=== PATIENT | female | born 1935 | race Two or more races ===

== ENCOUNTER 2016-11-29 14:55 | Inpatient (IN) | payer MEDICARE, OTHER ==
[~2016-11-29] VITALS: Ht 154.9 cm; Wt 63.5 kg
[~2016-11-29 14:55] MED LIST: ALLERGY RELIEF10 M2 PO; AUGMENTIN 500M500 MG PO; BENADRYL25 MG PO; IBUPROFEN600 MG ORAL; LOSARTAN POTASS25 MG PO; METOPROLOL TART25 MG PO; NORCO 5-325 TA1 EACH ORAL; PREDNISONE50 MG PO; SIMVASTATIN10 MG PO; ZANTAC150 MG PO
--- NOTE | 2016-11-29 15:05 | Emergency Room Report ---
History of Present Illness General Chief Complaint: Multiple Trauma/Fall Source: Patient Present Illness HPI Patient presents with complaints of pain to the left hip she reports slipping and falling in the kitchen earlier today rates the pain as 3/10 when she tries to move the leg pain is 8/10 denies any headache or visual changes denies any neck pain as any chest pain or short of breath Denies any abdominal pain Does not recall any lightheadedness and essentially describes a purely mechanical nature Allergies: Coded Allergies: No Known Allergies (Unverified , 11/29/16) Patient History Past Medical History: see triage record Pertinent Family History: none Reviewed Nursing Documentation: PMH: Agreed, PSxH: Agreed Nursing Documentation-PMH Hx Cardiac Problems: Yes Hx Hypertension: Yes Hx Pacemaker: Yes Review of Systems All Other Systems: negative except mentioned in HPI Physical Exam Vital Signs Date Time Temp Pulse Resp B/P Pulse Ox O2 Delivery O2 Flow Rate FiO2 11/29/16 14:47 98.1 79 16 188/104 98 Room Air Sp02 EP Interpretation: reviewed, normal General Appearance: mild distress Head: normocephalic, atraumatic Eyes: bilateral eye EOMI, bilateral eye PERRL ENT: hearing grossly normal, normal pharynx, TMs + canals normal, uvula midline Neck: full range of motion, supple, no meningismus, no bony tend Respiratory: lungs clear, normal breath sounds, no rhonchi, no respiratory distress, no retraction, no accessory muscle use Cardiovascular #1: normal peripheral pulses, regular rate, rhythm, no edema, no gallop, no JVD, no murmur Gastrointestinal: normal bowel sounds, non tender, soft, no mass, no organomegaly, non-distended, no guarding, no hernia, no pulsatile mass, no rebound Genitourinary: no CVA tenderness Musculoskeletal: other - Patient has tenderness to the left pelvic area difficulty flexing at the knee sensory however is intact Neurologic: oriented x3, responsive, tire beader maker III-XII nml as tested, motor strength/ tone normal, sensory intact Psychiatric: mood/affect normal Skin: normal color, no rash, warm/dry, palpation normal Lymphatic: normal inspection, no adenopathy Medical Decision Making Diagnostic Impression: Primary Impression: Femoral neck fracture Additional Impression: CHF (congestive heart failure) ER Course Patient had imaging study obtained showing a left femoral neck fracture Initial blood work was also initiated Does reveal cardiomegaly with some mild congestion Patient requiring cardiology consultation Orthopedics was consult as well And patient admitted for further inpatient care Labs Test 11/29/16 15:10 White Blood Count 7.9 K/UL (4.8-10.8) Red Blood Count 5.08 M/UL (4.20-5.40) Hemoglobin 14.9 G/DL (12.0-16.0) Hematocrit 45.2 % (37.0-47.0) Mean Corpuscular Volume 89 FL (80-99) Mean Corpuscular Hemoglobin 29.2 PG (27.0-31.0) Mean Corpuscular Hemoglobin Concent 32.8 G/DL (32.0-36.0) Red Cell Distribution Width 14.3 % (11.6-14.8) Platelet Count 139 K/UL (150-450) Mean Platelet Volume 8.3 FL (6.5-10.1) Neutrophils (%) (Auto) 58.6 % (45.0-75.0) Lymphocytes (%) (Auto) 25.7 % (20.0-45.0) Monocytes (%) (Auto) 10.7 % (1.0-10.0) Eosinophils (%) (Auto) 2.7 % (0.0-3.0) Basophils (%) (Auto) 2.4 % (0.0-2.0) Prothrombin Time 10.4 SEC (9.30-11.50) Prothromb Time International Ratio 1.1 (0.9-1.1) Activated Partial Thromboplast Time 22 SEC (23-33) Sodium Level 139 mEQ/L (135-145) Potassium Level 4.6 mEQ/L (3.4-4.9) Chloride Level 96 mEQ/L (98-107) Carbon Dioxide Level 26 mEQ/L (20-30) Anion Gap 17 (5-15) Blood Urea Nitrogen 29 mg/dL (7-23) Creatinine 1.1 mg/dL (0.5-0.9) Estimat Glomerular Filtration Rate mL/min (>60) Glucose Level 121 mg/dL (74-106) Calcium Level 9.4 mg/dL (8.6-10.2) Total Bilirubin 0.4 mg/dL (0.0-1.2) Aspartate Amino Transf (AST/SGOT) 21 U/L (5-40) Alanine Aminotransferase (ALT/SGPT) 16 U/L (3-33) Alkaline Phosphatase 61 U/L (35-104) Total Creatine Kinase 51 U/L (26-140) Creatine Kinase MB 2.7 ng/mL (< 3.8) Creatine Kinase MB Relative Index 5.2 Troponin I < 0.30 ng/mL (<=0.30) Total Protein 7.1 g/dL (6.6-8.7) Albumin 4.6 g/dL (3.5-5.2) Globulin 2.5 g/dL Albumin/Globulin Ratio 1.8 (1.0-2.7) Rhythm Strip Diag. Results EP Interpretation: yes Rate: 67 Rhythm: NSR, no PVC's, no ectopy Chest X-Ray Diagnostic Results EP Interpretation: Yes Findings: no consolidation, no effusion, no pneumothorax, other - Cardiomegaly with mild congestion Number of Views: 1 CT/MRI/US Diagnostic Results CT/MRI/US Diagnostic Results : Impression CT pelvic: Left femoral neck fracture refer to report for full detail Last Vital Signs Date Time Temp Pulse Resp B/P Pulse Ox O2 Delivery O2 Flow Rate FiO2 11/29/16 14:47 98.1 79 16 188/104 98 Room Air Status: improved Disposition: ADMITTED INPATIENT Condition: Serious VERONICA MARCANO D.O. Nov 29, 2016 15:05
[2016-11-29 15:13] VITALS: BP 187/112
[2016-11-29 15:24] LABS: BASOPHILS % (AUTO) 2.4 % (0.0-2.0); EOSINOPHILS % (AUTO) 2.7 % (0.0-3.0); LYMPHOCYTES % (AUTO) 25.7 % (20.0-45.0); MEAN CORPUSCULAR HEMOGLOBIN 29.2 PG (27.0-31.0); MEAN CORPUSCULAR HGB CONC 32.8 G/DL (32.0-36.0); MEAN CORPUSCULAR VOLUME 89 FL (80-99); MEAN PLATELET VOLUME 8.3 FL (6.5-10.1); MONOCYTES % (AUTO) 10.7 % (1.0-10.0); NEUTROPHILS % (AUTO) 58.6 % (45.0-75.0); PLATELET COUNT 139 K/UL (150-450); RED BLOOD COUNT 5.08 M/UL (4.20-5.40); RED CELL DISTRIBUTION WIDTH 14.3 % (11.6-14.8); WHITE BLOOD COUNT 7.9 K/UL (4.8-10.8)
[2016-11-29 15:51] LABS: INR 1.1 (0.9-1.1); PROTHROMBIN TIME 10.4 SEC (9.30-11.50)
[2016-11-29 15:59] LABS: ALANINE AMINOTRANSFERASE 16 U/L (3-33); ALBUMIN/GLOBULIN RATIO 1.8 (1.0-2.7); ANION GAP 17 (5-15); ASPARTATE AMINO TRANSFERASE 21 U/L (5-40); CALCIUM 9.4 mg/dL (8.6-10.2); CARBON DIOXIDE 26 mEQ/L (20-30); CHLORIDE 96 mEQ/L (98-107); CREATININE 1.1 mg/dL (0.5-0.9); HEMOLYSIS 11; POTASSIUM 4.6 mEQ/L (3.4-4.9); SODIUM 139 mEQ/L (135-145); TOTAL PROTEIN 7.1 g/dL (6.6-8.7); TROPONIN I < 0.30 ng/mL (<=0.30)
[2016-11-29 16:10] LABS: CKMB 2.7 ng/mL (< 3.8)
--- NOTE | 2016-11-29 16:24 | Diagnostic Imaging Report ---
Indication: Trauma left hip from mechanical fall. Left hip pain Technique: Noncontrast spiral acquisitions obtained through the pelvis. Multiplanar reconstructions generated. Total dose length product 326 mGycm. CTDIvol(s) 11 mGy Comparison: None Findings: There is a comminuted fracture of the distal left femoral neck. This demonstrates posterior angulation, slight superior displacement. No evidence of pelvic fracture demonstrated. No right hip fracture demonstrated. The sacrum is intact. There minimal increased attenuation of the subcutaneous fat adjacent to the left hip, consistent with minimal contusion. There is degenerative lumbosacral spondylosis The included pelvic viscera are remarkable for the presence of sigmoid diverticulosis. The appendix, uterus, adnexal structures are unremarkable. Impression: Positive for left distal femoral neck fracture, as described Findings discussed by phone previously with Dr. Bryant in the emergency room The CT scanner at [facility] is accredited by the [employer] and the scans are performed using protocols designed to limit radiation exposure to as low as reasonably achievable to attain images of sufficient resolution adequate for diagnostic evaluation.
[2016-11-29] MEDS: Morphine Sulfate 2mg/ml Inj IVP ONE ×2 (16:36→16:57)
--- NOTE | 2016-11-29 16:40 | Diagnostic Imaging Report ---
Indication: Chest Technique: One view of the chest Comparison: none Findings: The heart is enlarged. There is mild interstitial edema. No focal airspace consolidation. No definite pleural fluid. Left chest bifocal pacemaker is noted Impression: Cardiomegaly. Mild interstitial edema. Correlate with clinical findings
[2016-11-29] MEDS ORDERED: Ketorolac 30mg Inj IV ONE (17:00)
[2016-11-29 17:15] VITALS: BP 188/113
[2016-11-29] MEDS ORDERED: VITAMIN B-12500 MCG ORAL (17:46)
[2016-11-29] MEDS ORDERED: VASCEPA1 GM PO (17:46)
[2016-11-29] MEDS ORDERED: METOPROLOL SUCC25 MG ORAL (17:46)
[2016-11-29] MEDS ORDERED: DEXILANT60 MG ORAL (17:46)
[2016-11-29] MEDS ORDERED: AMIODARONE HCL400 M1 ORAL (17:46)
[2016-11-29] MEDS ORDERED: ATORVASTATIN CA20 MG ORAL (17:46)
[2016-11-29] MEDS ORDERED: ASPIR 8181 MG ORAL (17:46)
[2016-11-29 18:12] VITALS: BP 185/98
[2016-11-29 18:17] VITALS: BP 171/90
[2016-11-29 18:30] VITALS: BP 167/82
[2016-11-29] MEDS ORDERED: DiphenhydrAMINE 50mg/ml Inj IVP PRN ×2 (19:30→20:25)
[2016-11-29] MEDS: Norco 5mg/325mg tab ORAL PRN (19:51)
[2016-11-29 20:00] VITALS: BP 170/96
[2016-11-29] MEDS ORDERED: Zolpidem 5mg tab ORAL PRN (20:00)
[2016-11-29] MEDS ORDERED: Milk of Magnesia 30ml Ud ORAL PRN (20:00)
[2016-11-29] MEDS: Losartan 25mg tab ORAL SCH (20:04)
--- NOTE | 2016-11-29 20:24 | Consultation ---
Consult Note Consult Note Cardiology/EP Full note dictated Mrs Lujan is an 81 y WF w/ htn, sss/ PAF, s/p perm pacemaker ([employer]) who sustained a L femoral neck fracture in a nonsyncopal fall today. She has had card cath in 2014 - normal cors and LV function. ECHO in 2011 - nl LV wall motion, mild LVH and mild to mod AI. Pacer checked in 10/2016 - normal function, PAF - to 8 hrs 43 min She is at acceptable risk from a cardiovascular standpoint for planned ortho surgery. d/w Dr. Sullivan and Marcus. #[id number] SAVI GAN Nov 29, 2016 20:24
[2016-11-29] MEDS ORDERED: Hydromorphone 0.5mg/0.5ml inj IVP ONE (20:30)
[2016-11-29] MEDS: Atorvastatin 20mg tab ORAL SCH (20:53)
[2016-11-29] MEDS ORDERED: Amiodarone 200mg tab ORAL SCH (21:00)
[2016-11-29] MEDS: Docusate 100mg cap ORAL SCH (21:55)
[2016-11-29] MEDS: Heparin 5000 units/ml inj SUBQ SCH (21:55)
--- NOTE | 2016-11-29 23:48 | Consultation ---
DATE OF CONSULTATION: CARDIOLOGY CONSULTATION CONSULTING PHYSICIAN: Vernell Dominguez M.D. REQUESTING PHYSICIAN: Abisai Sullivan M.D. REASON FOR CONSULT: Preoperative cardiac evaluation. HISTORY OF PRESENT ILLNESS: History was obtained from the family members and the patient's chart as well as treating provider as the patient speaks Farsi. The patient is an 81-year-old white female with a history of hypertension, sick sinus syndrome, paroxysmal atrial fibrillation status post permanent pacemaker ([facility]), who slipped and fell in her kitchen today. She suffered a distal femoral neck fracture and has been admitted for further treatment. Cardiac clearance was requested. The patient's history of previous cardiac testing at [facility] was reviewed. The patient underwent cardiac catheterization on 05/23/2016, which showed normal coronary arteries and normal left ventricular function. She has had an echo in 2011 also showing normal left ventricular function and [id number] aortic insufficiency. She has had regular pacemaker evaluations with the evaluation on 10/05/2016 showing normal pacemaker function but with an 8 hour and 43 minute episode of atrial fibrillation. She has not been anticoagulated. CURRENT MEDICATIONS: Includes aspirin 81 mg daily, vitamin B12 500 mcg daily, metoprolol 12.5 mg daily, amiodarone 400 mg q.12 h., atorvastatin 20 mg daily, losartan 25 mg q.12 h., [place]lin 5/325 p.r.n., and Benadryl p.r.n. ALLERGIES: Amoxicillin and morphine. Morphine caused nausea. PAST MEDICAL HISTORY: As noted above. SOCIAL HISTORY: The patient is a nonsmoker. Does not drink alcohol. PHYSICAL EXAMINATION: GENERAL: Alert, elderly appearing white female, complaining of left hip pain, in mild distress. VITAL SIGNS: Blood pressure is 167/82, pulse 72 and regular, respirations 15, and afebrile. HEENT: Normocephalic and atraumatic. Pupils equal, round, and reactive to light. Sclerae anicteric. Oral mucosa moist. NECK: Supple. There is no jugular venous distention. No carotid bruits. LUNGS: Clear anteriorly to auscultation. HEART: Regular rate and rhythm. S1 and S2 with no murmurs, rubs, S3, or S4. ABDOMEN: Soft and nontender. No palpable mass. No organomegaly. EXTREMITIES: Tenderness of the left hip and pelvic area. Distal lower extremity pulses are intact. No peripheral edema. LABORATORY DATA: Hemoglobin 14.9 and white blood count 7900. Potassium 4.6. BUN 29 and creatinine 1.1. Troponin less than 0.3. INR 1.1. EKG is pending. Platelets are 139,000 (history of chronic thrombocytopenia. Chest x-ray shows a dual-chamber pacemaker placed in the right atrium and right ventricle and possible mild increased interstitial markings. EKG shows an atrially paced rhythm at 75 beats per minute with intact AV conduction and nonspecific T-wave changes, axis +60 degrees. ASSESSMENT AND RECOMMENDATIONS: The patient is an 81-year-old woman with a history of hypertension, sick sinus syndrome, and status post permanent dual-chamber pacemaker placement, who suffered a non-syncopal fall while walking to her kitchen today and has sustained a left femoral neck fracture. She will be evaluated by Orthopedic surgery. From a cardiac standpoint, she is stable. She has no coronary artery disease based on cardiac catheterization done one year ago and has normal left ventricular systolic function with no significant valvular abnormalities. She is hypertensive and this may be partly due to with the exception of vvzu-ns-cvldwvam aortic insufficiency. She is currently in normal sinus rhythm. She is hypertensive and this may partly be due to pain from her fracture. I will continue her usual cardiac medications including amiodarone for paroxysmal atrial fibrillation and metoprolol and losartan for hypertension. Additional medication will be given as needed for hypertension. Her pacemaker will be interrogated tomorrow to determine the extent of atrial fibrillation. She is at acceptable cardiovascular risk for the planned orthopedic surgery. Vernell Dominguez M.D. DR: MINNIE JOB#: [id number] CC:
[2016-11-30] VITALS (16 sets, daily range): BP systolic 82–154; BP diastolic 55–96
--- NOTE | 2016-11-30 01:18 | Consultation ---
DATE OF CONSULTATION: 11/29/2016 ORTHOPEDIC CONSULTATION CHIEF COMPLAINT: Right hip pain. HISTORY OF PRESENT ILLNESS: The patient is an 81-year-old female, who sustained a mechanical fall. She has had significant pain and difficulty ambulating. She presented to the ER with imaging studies showing displaced femoral neck fracture. Orthopedic consultation was obtained for further care and recommendation. PAST MEDICAL HISTORY: Reviewed from the intake chart. PAST SURGICAL HISTORY: Reviewed from the intake chart. MEDICATIONS: Reviewed from the intake chart. PHYSICAL EXAMINATION: The patient in moderate discomfort. She has pain with internal and external rotation of the left hip. Left leg is short and internally rotated. Posterior calf is soft. Neurovascular is normal. IMAGING STUDIES: CT scan of the left hip shows a displaced femoral neck fracture. ASSESSMENT: Left femoral neck fracture. DISCUSSION: At this point, what I am going to recommend, especially with the left hip hemiarthroplasty. Risks, limitations, expectations and complication of the procedure were discussed in detail. All questions were addressed. We will proceed with surgery tomorrow. She is medically optimized. Risk including leg length discrepancy, instability, excessive discussion, nerve, vessel damage, and risk of anesthesia were all discussed. Alternatives were also discussed, but at this point, she really does not have any nonoperative options. Rick Velazquez M.D. DR: ESTRADA JOB#: [id number] CC:
[2016-11-30] MEDS: Norco 5mg/325mg tab ORAL PRN (03:46)
[2016-11-30 07:05] LABS: BASOPHILS % (AUTO) 0.9 % (0.0-2.0); EOSINOPHILS % (AUTO) 0.4 % (0.0-3.0); LYMPHOCYTES % (AUTO) 11.6 % (20.0-45.0); MEAN CORPUSCULAR HEMOGLOBIN 29.3 PG (27.0-31.0); MEAN CORPUSCULAR HGB CONC 33.5 G/DL (32.0-36.0); MEAN CORPUSCULAR VOLUME 87 FL (80-99); MEAN PLATELET VOLUME 7.5 FL (6.5-10.1); MONOCYTES % (AUTO) 9.9 % (1.0-10.0); NEUTROPHILS % (AUTO) 77.2 % (45.0-75.0); PLATELET COUNT 126 K/UL (150-450); RED BLOOD COUNT 4.56 M/UL (4.20-5.40); RED CELL DISTRIBUTION WIDTH 13.8 % (11.6-14.8); WHITE BLOOD COUNT 9.5 K/UL (4.8-10.8)
[2016-11-30 07:32] LABS: ANION GAP 14 (5-15); CARBON DIOXIDE 26 mEQ/L (20-30); CHLORIDE 95 mEQ/L (98-107); HEMOLYSIS 10; POTASSIUM 4.1 mEQ/L (3.4-4.9); SODIUM 135 mEQ/L (135-145)
[2016-11-30] MEDS: Docusate 100mg cap ORAL SCH ×2 (08:40→20:10)
[2016-11-30] MEDS: Amiodarone 200mg tab ORAL SCH (08:40)
[2016-11-30] MEDS: Aspirin Baby 81mg ORAL SCH (08:40)
[2016-11-30] MEDS: Losartan 25mg tab ORAL SCH ×2 (08:41→21:00)
[2016-11-30] MEDS: Heparin 5000 units/ml inj SUBQ SCH (08:45)
[2016-11-30] MEDS: Vitamin B-12 500mcg tab ORAL SCH (08:45)
[2016-11-30] MEDS: Metoprolol XL 100mg tab ORAL SCH (08:45)
[2016-11-30] MEDS ORDERED: VASCEPA 1 GM ORAL SCH (09:00)
[2016-11-30] MEDS ORDERED: Metoprolol Tartrate 12.5mg TAB ORAL SCH (09:00)
--- NOTE | 2016-11-30 10:56 | History & Physical ---
History and Physical History & Physicial .[facility] # [id number] JASBIR CRUZ Nov 30, 2016 10:56
[2016-11-30] MEDS ORDERED: Hydromorphone 0.5mg/0.5ml inj IVP PRN ×2 (11:15→14:00)
[2016-11-30] MEDS ORDERED: D5 1/2NS 1,000 ML IV SCH (11:15)
--- NOTE | 2016-11-30 13:11 | Anethesia Preoperative Eval ---
Anesthesia Pre-op PMH/ROS General Date of Evaluation: Nov 30, 2016 Anesthesiologist: Shakir ASA Score: ASA 2 Mallampati Score Class I : Soft palate, uvula, fauces, pillars visible Class II: Soft palate, uvula, fauces visible Class III: Soft palate, base of uvula visible Class IV: Only hard plate visible Mallampati Classification: Class II Surgeon: Marcus Diagnosis: Left hip fracture Surgical Procedure: Left hip hemiarthroplasty Anesthesia History: none Family History: no anesthesia problems Allergies: Coded Allergies: AMOXICILLIN (Verified Allergy, Unknown, 11/30/16) MORPHINE (Verified Allergy, Unknown, NAUSEA, 11/30/16) Medications: see eMAR Past Medical History Cardiovascular: Reports: HTN, arrhythmia - aib s/p pacemaker, other - CHF, Denies: CAD, NM, valve dz Pulmonary: Denies: COPD, ZENIA, asthma, other Gastrointestinal/Genitourinary: Reports: GERD, Denies: CRI, ESRD, other Neurologic/Psychiatric: Denies: CVA, TIA, dementia, depression/anxiety, other Endocrine: Denies: DM, hypothyroidism, other, steroids HEENT: Denies: [place] (L), [place] (R), cataract (L), cataract (R), glaucoma, other Hematology/Immune: Reports: anemia - chronic, Denies: DVT, bleeding disorder, other Musculoskeletal/Integumentary: Reports: OA, Denies: DDD, DJD, RA, edema, other PSxH Narrative: PAcemaker Anesthesia Pre-op Phys. Exam Physician Exam Last Vital Signs Date Time Temp Pulse Resp B/P Pulse Ox O2 Delivery O2 Flow Rate FiO2 11/30/16 08:45 76 142/89 11/30/16 04:45 97.5 11/30/16 04:00 18 96 Nasal Cannula 2.0 Constitutional: other - in severe pain, anxious Cardiovascular: RRR Respiratory: CTA Airway Exam Mallampati Score: Class II MO: full ROM: full Anesthesia Pre-op A/P Labs Hematology Test 11/29/16 15:10 11/30/16 05:10 White Blood Count 7.9 K/UL (4.8-10.8) 9.5 K/UL (4.8-10.8) Red Blood Count 5.08 M/UL (4.20-5.40) 4.56 M/UL (4.20-5.40) Hemoglobin 14.9 G/DL (12.0-16.0) 13.4 G/DL (12.0-16.0) Hematocrit 45.2 % (37.0-47.0) 39.9 % (37.0-47.0) Mean Corpuscular Volume 89 FL (80-99) 87 FL (80-99) Mean Corpuscular Hemoglobin 29.2 PG (27.0-31.0) 29.3 PG (27.0-31.0) Mean Corpuscular Hemoglobin Concent 32.8 G/DL (32.0-36.0) 33.5 G/DL (32.0-36.0) Red Cell Distribution Width 14.3 % (11.6-14.8) 13.8 % (11.6-14.8) Platelet Count 139 K/UL (150-450) L 126 K/UL (150-450) L Mean Platelet Volume 8.3 FL (6.5-10.1) 7.5 FL (6.5-10.1) Neutrophils (%) (Auto) 58.6 % (45.0-75.0) 77.2 % (45.0-75.0) H Lymphocytes (%) (Auto) 25.7 % (20.0-45.0) 11.6 % (20.0-45.0) L Monocytes (%) (Auto) 10.7 % (1.0-10.0) H 9.9 % (1.0-10.0) Eosinophils (%) (Auto) 2.7 % (0.0-3.0) 0.4 % (0.0-3.0) Basophils (%) (Auto) 2.4 % (0.0-2.0) H 0.9 % (0.0-2.0) Coagulation Test 11/29/16 15:10 Prothrombin Time 10.4 SEC (9.30-11.50) Prothromb Time International Ratio 1.1 (0.9-1.1) Activated Partial Thromboplast Time 22 SEC (23-33) L Chemistry Test 11/29/16 15:10 11/30/16 05:10 Sodium Level 139 mEQ/L (135-145) 135 mEQ/L (135-145) Potassium Level 4.6 mEQ/L (3.4-4.9) 4.1 mEQ/L (3.4-4.9) Chloride Level 96 mEQ/L (98-107) L 95 mEQ/L (98-107) L Carbon Dioxide Level 26 mEQ/L (20-30) 26 mEQ/L (20-30) Anion Gap 17 (5-15) H 14 (5-15) Blood Urea Nitrogen 29 mg/dL (7-23) H 30 mg/dL (7-23) H Creatinine 1.1 mg/dL (0.5-0.9) H 1.0 mg/dL (0.5-0.9) H Estimat Glomerular Filtration Rate mL/min (>60) mL/min (>60) Glucose Level 121 mg/dL (74-106) H 127 mg/dL (74-106) H Calcium Level 9.4 mg/dL (8.6-10.2) 9.0 mg/dL (8.6-10.2) Total Bilirubin 0.4 mg/dL (0.0-1.2) Aspartate Amino Transf (AST/SGOT) 21 U/L (5-40) Alanine Aminotransferase (ALT/SGPT) 16 U/L (3-33) Alkaline Phosphatase 61 U/L (35-104) Total Creatine Kinase 51 U/L (26-140) Creatine Kinase MB 2.7 ng/mL (< 3.8) Creatine Kinase MB Relative Index 5.2 Troponin I < 0.30 ng/mL (<=0.30) Total Protein 7.1 g/dL (6.6-8.7) Albumin 4.6 g/dL (3.5-5.2) Globulin 2.5 g/dL Albumin/Globulin Ratio 1.8 (1.0-2.7) Studies Pre-op Studies: EKG - SR-paced Risk Assessment & Plan Assessment: ASA IIE Plan: SAB vs GA Status Change Before Surgery: No Pre-Antibiotics Drug: JOSE PRUETT M.D. Nov 30, 2016 13:11
[2016-11-30] MEDS ORDERED: Bupivacaine 0.75% 30ml vial INJ ONE (13:30)
[2016-11-30] MEDS ORDERED: Bacitracin 50000 Units Vial ONE (13:31)
[2016-11-30] MEDS ORDERED: Morphine Sulfate PF 10 ML ONE (13:40)
[2016-11-30] MEDS ORDERED: Bupivacaine w/Epi 0.25% 30ml Vial INJ ONE (13:40)
[2016-11-30] MEDS ORDERED: Ketorolac 30mg Inj ONE (13:40)
[2016-11-30] MEDS ORDERED: Clindamycin 600mg 0 ML IV ONE (13:41)
--- NOTE | 2016-11-30 13:49 | Cardiology Report ---
APPROVED REPORT EKG Measurement Heart [id number] ID [id number] Atrial Pacemaker Abnormal ECG
[2016-11-30] MEDS ORDERED: LR 1000ml 1,000 ML IVLG SCH (13:56)
[2016-11-30] MEDS ORDERED: fentaNYL 100 mcg/2 mL IV ONE (14:00)
[2016-11-30] MEDS ORDERED: DiphenhydrAMINE 50mg/ml Inj IVP PRN (14:00)
[2016-11-30] MEDS ORDERED: fentaNYL 100 mcg/2 mL IV PRN (14:00)
[2016-11-30] MEDS ORDERED: LR 1000ml ONE (14:00)
[2016-11-30] MEDS ORDERED: Ketamine 500mg Inj ONE (14:00)
[2016-11-30] MEDS ORDERED: Labetalol 5mg/ml 20ml vial IV PRN (14:00)
[2016-11-30] MEDS ORDERED: Labetalol 5mg/ml 20ml vial IV ONE (14:00)
[2016-11-30] MEDS ORDERED: Midazolam 2mg/2ml Inj ONE (14:00)
--- NOTE | 2016-11-30 14:03 | Pre-Procedure Note/Attestation ---
Pre-Procedure Note/Attestation Complete Prior to Procedure Planned Procedure: left Procedure Narrative: hip hemiarthroplasty Indications for Procedure Pre-Operative Diagnosis: left femoral neck fracture Attestation I attest that I discussed the nature of the procedure; its benefits; risks and complications; and alternatives (and the risks and benefits of such alternatives ), prior to the procedure, with the patient (or the patient's legal delivery representative). I attest that, if there was a reasonable possibility of needing a blood transfusion, the patient (or the patient's legal delivery representative) was given the [facility] standardized written summary, pursuant to the Robert Palomo Blood Safety Act ([place] Health and Safety Code # 1645, as amended). I attest that I re-evaluated the patient just prior to the surgery and that there has been no change in the patient's H&P, except as documented below: KRISTINE BUCKLEY Nov 30, 2016 14:03
--- NOTE | 2016-11-30 14:04 | Operative Note - PDOC ---
Operative Note Operative Note Pre-op Diagnosis: left femoral neck fracture Procedure: left hip hemiarthroplasty Post-op Diagnosis: same as pre-op Operative Findings: consistent w/pre-op dx studies Anesthesia: regional Specimen: yes Complications: none Condition: stable Estimated Blood Loss: minimal Implant(s) used?: Yes KRISTINE BUCKLEY Nov 30, 2016 14:04
[2016-11-30] MEDS ORDERED: D5 1/2NS 1000ml IV ONE (14:35)
--- NOTE | 2016-11-30 14:38 | History and Physical Report ---
DATE OF ADMISSION: 11/29/2016 CHIEF COMPLAINT: Left hip pain after a mechanical fall. HISTORY OF PRESENT ILLNESS: This is an 81-year-old Filipino female who lives at home with . She was in the kitchen when she slipped and fell, and had severe left hip pain. She was unable to ambulate. She was brought into the hospital and x-ray showed that she had a displaced left femoral neck fracture. The patient was admitted for further care. PAST MEDICAL HISTORY: Includes history of sick sinus syndrome, paroxysmal atrial fibrillation, the patient is status post permanent pacemaker, she had a cardiac catheterization in 2014 with normal coronaries and LV function, echo in 2011 showed normal wall motion and mild LVH and mild to moderate aortic insufficiency. The patient was seen last night by exhibit preparator, Dr. Dominguez and was cleared for surgery. MEDICATIONS: Reviewed. SOCIAL HISTORY: No history of smoking or alcohol abuse. The patient lives at home. ALLERGIES: Reported to amoxicillin. REVIEW OF SYSTEMS: Noncontributory except for those mentioned. PHYSICAL EXAMINATION: GENERAL: The patient is an elderly female, in no acute distress. VITAL SIGNS: Blood pressure 142/89, pulse 76, temperature 97.5, and respiratory rate is 18. HEENT: [place] conjunctivae. Anicteric sclerae. NECK: Supple. LUNGS: Clear to auscultation. HEART: S1 and S2 without murmurs or rubs. ABDOMEN: Soft and nontender. EXTREMITIES: The patient's left lower extremity is externally rotated. LABORATORY FINDINGS: The chemistry panel shows serum sodium of 135, potassium 4.1, chloride 95, CO2 26, BUN is 30, creatinine 1, blood sugar is 127, and calcium is 9. CBC shows WBC of 9.5, hematocrit 39.9, hemoglobin 13.4, and platelets 126,000. ASSESSMENT: This is an 81-year-old white female with history of hypertension, sick sinus syndrome, status post pacemaker, who has sustained a left femoral neck fracture after mechanical fall. PLAN: This patient was cleared for surgery as mentioned. She will be on IV fluid, n.p.o. Surgery is planned for this afternoon. I will follow and make further recommendations based on hospital course. Abisai Sullivan M.D. DR: Marco JOB#: [id number] CC:
[2016-11-30] MEDS ORDERED: Ketorolac 30mg Inj IM ONE (15:00)
[2016-11-30] MEDS ORDERED: Duramorph PF 10mg/10ml amp EPIDUR ONE (15:00)
--- NOTE | 2016-11-30 15:30 | Immediate Post-Op Evaluation ---
Immediate Post-Op Evalulation Immediate Post-Op Evalulation Procedure: Left hip hemiarthroplasty Date of Evaluation: Nov 30, 2016 Time of Evaluation: 15:31 IV Fluids: 600 Blood Products: 0 Estimated Blood Loss: 50 Urinary Output: 150 Blood Pressure Systolic: 113 Blood Pressure Diastolic: 69 Pulse Rate: 75 Respiratory Rate: 16 O2 Sat by Pulse Oximetry: 95 Temperature (Fahrenheit): 97 Pain Score (1-10): 0 Nausea: No Vomiting: No Complications 0 Patient Status: awake, reacts, patent, none Hydration Status: adequate Drug: Ancef 1g Given Within 1 Hr of Incision: Yes Time Given: 14:15 JOSE FRIAS M.D. Nov 30, 2016 15:30
[2016-11-30] MEDS ORDERED: HYDROmorphone 1mg/ml Carpuject SUBQ PRN (17:15)
[2016-11-30] MEDS ORDERED: Norco 5mg/325mg tab ORAL PRN (17:15)
--- NOTE | 2016-11-30 17:45 | Diagnostic Imaging Report ---
Indication: POST-OP Technique: One view of the left Comparison: CT pelvis 12 30/01/16 Findings: Interim repair previously demonstrated left hip fracture with left hip hemiarthroplasty prosthesis. Prosthesis appears well aligned. There is retained air within the surgical wound. Ibrahim catheter incidentally noted Impression: Postoperative left hip, as described. No unusual features
--- NOTE | 2016-11-30 18:25 | Cardiology Progress Note ---
Assessment/Plan Problem List: (1) Injury of lower extremity (2) Femoral neck fracture (3) Paroxysmal atrial fibrillation (4) Sick sinus syndrome Status: stable, progressing Status Narrative Pt is s/p nonsyncopal fall, and sustained L femoral neck fracture. She is s/p L hip ORIF today. Hemodynamically stable post op Assessment/Plan Continue iv fluids/hydration, until pt able to take po. Continue amiodarone for PAF sc heparin bid for DVT prophylaxis, but would hold full anticoagulation for now. Pacemaker was interrogated today - no further AF was noted and device is functioning normally. Subjective ROS Limited/Unobtainable: Yes Subjective Mrs. Lujan is seen post-op - sedated. Events noted Objective Last 24 Hour Vital Signs Date Time Temp Pulse Resp B/P Pulse Ox O2 Delivery O2 Flow Rate FiO2 11/30/16 16:48 98.0 75 14 99/60 99 Nasal Cannula 3.0 11/30/16 16:40 75 14 92/60 99 Nasal Cannula 3.0 11/30/16 16:25 75 16 94/55 99 Nasal Cannula 3.0 11/30/16 16:10 75 20 96/61 99 Nasal Cannula 3.0 11/30/16 15:59 75 20 107/63 99 Nasal Cannula 3.0 11/30/16 15:54 75 20 102/56 99 Nasal Cannula 3.0 11/30/16 15:44 75 20 104/62 95 Nasal Cannula 3.0 11/30/16 15:40 75 20 98/62 95 Nasal Cannula 3.0 11/30/16 15:35 75 20 82/56 95 Nasal Cannula 3.0 11/30/16 15:30 79 20 113/69 95 Nasal Cannula 3.0 11/30/16 15:30 75 16 95 11/30/16 15:26 97.0 75 20 104/64 95 Nasal Cannula 3.0 11/30/16 12:34 97.5 11/30/16 12:00 98.8 77 20 154/94 97 Room Air 11/30/16 08:45 76 142/89 11/30/16 08:41 142/89 11/30/16 04:45 97.5 11/30/16 04:00 98.0 75 18 131/78 96 Nasal Cannula 2.0 11/30/16 00:00 97.5 75 18 139/96 95 Nasal Cannula 2.0 11/29/16 20:04 167/82 11/29/16 20:00 97.9 79 18 170/96 97 Nasal Cannula 2.0 11/29/16 18:36 98.1 72 15 167/82 99 Nasal Cannula 2.0 11/29/16 18:30 98.1 72 15 167/82 99 Nasal Cannula 2.0 General Appearance: other - sedated Neck: supple, no JVD Rhythm: NSR Cardiovascular: normal rate, regular rhythm, no gallop/murmur Respiratory/Chest: lungs clear, other - clear anteriorly Abdomen: non tender, soft Extremities: other - L hip edema. dressing intact. 2+ dp pulses bilat. no periph edema Intake and Output 11/29/16 11/30/16 19:00 07:00 Intake Total 340 ml Output Total 1275 ml Balance -935 ml Intake Oral 340 ml Output Urine Total 1275 ml Laboratory Tests Test 11/30/16 05:10 White Blood Count 9.5 K/UL (4.8-10.8) Red Blood Count 4.56 M/UL (4.20-5.40) Hemoglobin 13.4 G/DL (12.0-16.0) Hematocrit 39.9 % (37.0-47.0) Mean Corpuscular Volume 87 FL (80-99) Mean Corpuscular Hemoglobin 29.3 PG (27.0-31.0) Mean Corpuscular Hemoglobin Concent 33.5 G/DL (32.0-36.0) Red Cell Distribution Width 13.8 % (11.6-14.8) Platelet Count 126 K/UL (150-450) L Mean Platelet Volume 7.5 FL (6.5-10.1) Neutrophils (%) (Auto) 77.2 % (45.0-75.0) H Lymphocytes (%) (Auto) 11.6 % (20.0-45.0) L Monocytes (%) (Auto) 9.9 % (1.0-10.0) Eosinophils (%) (Auto) 0.4 % (0.0-3.0) Basophils (%) (Auto) 0.9 % (0.0-2.0) Sodium Level 135 mEQ/L (135-145) Potassium Level 4.1 mEQ/L (3.4-4.9) Chloride Level 95 mEQ/L (98-107) L Carbon Dioxide Level 26 mEQ/L (20-30) Anion Gap 14 (5-15) Blood Urea Nitrogen 30 mg/dL (7-23) H Creatinine 1.0 mg/dL (0.5-0.9) H Estimat Glomerular Filtration Rate mL/min (>60) Glucose Level 127 mg/dL (74-106) H Calcium Level 9.0 mg/dL (8.6-10.2) SAVI GAN Nov 30, 2016 18:25
[2016-11-30] MEDS: D5 1/2NS w/KCl 20mEq 1,000 ML IV SCH (20:07)
[2016-11-30] MEDS: Atorvastatin 20mg tab ORAL SCH (20:10)
--- NOTE | 2016-11-30 20:58 | Operative Note - Dictated ---
DATE OF OPERATION: 11/30/2016 PREOPERATIVE DIAGNOSIS: Left femoral neck fracture. POSTOPERATIVE DIAGNOSIS: Left femoral neck fracture. PROCEDURES: Left hip hemiarthroplasty. SURGEON: Rick Velazquez M.D. ANESTHESIA: Spinal. INDICATION FOR PROCEDURE: The patient is a pleasant female, who sustained a mechanical fall. She was diagnosed with displaced femoral neck fracture indicative of operative fixation with left hip hemiarthroplasty. Risks, limitations, expectations, and complications were discussed in detail including leg length discrepancy, instability, infection, nerve vessel damage, risk of anesthesia, medical complications, DVT, PE, and mortality risks. All questions addressed. DESCRIPTION OF PROCEDURE: After informed consent was obtained, the patient was brought to the operative room and placed under monitored anesthesia control. Spinal anesthesia was placed. The patient was then carefully placed in lateral decubitus position and the left hip was prepped and draped in a sterile manner. Time-out was performed. Antibiotics were administered. Posterior lateral skin incision was then made. Fascia liz was incised. Piriformis and short external rotators were teed and tagged. The C2 neck cut below the fracture site was performed, it was removed and measured T43 and 44, therefore 43 femoral head was selected. Sequential broaching up to size 3 was performed with size 3 high offset and 0 head neck combo selected. Hip was reduced, flexed to 110 degrees, 90 degrees flexion, and internal rotation to 60. Extension and external rotation were stable. Ligaments were clinically equal. At this point, final implants were impacted into place. The capsule was reapproximated with two drills for the greater trocar and approximated with #1 Vicryl suture, 2-0 Vicryl suture, and 3-0 Monocryl suture. Steri-Strips and a sterile dressing were applied. The patient awoken and taken to recovery room with stable vital signs. ESTIMATED BLOOD LOSS: Bleeding is less than 50 mL. COMPLICATIONS: None. SPECIMENS: The femoral head. IMPLANTS: Judy Accolate size 3 high offset stem with a 0 head neck combo 43 bipolar head. Rick Velazquez M.D. DR: UBALDO JOB#: [id number] CC:
[2016-11-30] MEDS: CEFAZOLIN SOD IV SCH (21:10)
[2016-11-30] MEDS: NS IV SCH (21:10)
[2016-11-30] MEDS ORDERED: ceFAZolin sod 2 GM in D5W 100 ML IV SCH (22:00)
[2016-12-01] VITALS: BP 121/61
[2016-12-01] MEDS: D5 1/2NS w/KCl 20mEq 1,000 ML IV SCH ×2 (01:41→07:20)
[2016-12-01 04:00] VITALS: BP 142/77
[2016-12-01] MEDS: CEFAZOLIN SOD IV SCH (05:51)
[2016-12-01] MEDS: NS IV SCH (05:51)
--- NOTE | 2016-12-01 07:56 | 48 Hour Post Anesthesia Eval ---
Post Anesthesia Evaluation Procedure: Left hip hemiarthroplasty Date of Evaluation: Dec 01, 2016 Time of Evaluation: 07:30 Blood Pressure Systolic: 142 0: 77 Pulse Rate: 75 Respiratory Rate: 20 Temperature (Fahrenheit): 97.7 O2 Sat by Pulse Oximetry: 98 Airway: patent Nausea: No Vomiting: No Pain Intensity: 0 Hydration Status: adequate Cardiopulmonary Status: at baseline Mental Status/LOC: patient returned to baseline Post-Anesthesia Complications: None, family at bedside. Patient sleeping comfortobly but arousable. Follow-up care needed: N/A - further care as per primary team JOSE FRIAS M.D. Dec 01, 2016 07:56
[2016-12-01 08:00] VITALS: BP 149/84
[2016-12-01] MEDS: Docusate 100mg cap ORAL SCH ×2 (08:46→20:34)
[2016-12-01] MEDS: Losartan 25mg tab ORAL SCH ×3 (08:46→20:51)
[2016-12-01] MEDS: Aspirin Baby 81mg ORAL SCH (08:46)
[2016-12-01] MEDS: Amiodarone 200mg tab ORAL SCH (08:47)
[2016-12-01] MEDS: Vitamin B-12 500mcg tab ORAL SCH (08:54)
[2016-12-01] MEDS: Metoprolol XL 100mg tab ORAL SCH (08:54)
[2016-12-01] MEDS: Enoxaparin 40mg Inj SUBQ SCH (09:00)
--- NOTE | 2016-12-01 11:14 | Cardiology Progress Note ---
Assessment/Plan Problem List: (1) Injury of lower extremity (2) Femoral neck fracture (3) Paroxysmal atrial fibrillation (4) Sick sinus syndrome Status: doing well, stable, progressing Status Narrative Pt is s/p nonsyncopal fall, and sustained L femoral neck fracture. She is s/p L hip ORIF on 11/30 Cardiac status is stable. Assessment/Plan Stop iv fluids , as pt able to take po Continue amiodarone for PAF sc heparin bid for DVT prophylaxis, but would hold full anticoagulation for now. Incentive spirometer. PT/ inc ambulation Analgesics prn Subjective ROS Limited/Unobtainable: No Subjective Mrs. Lujan ambulated w/ walker this am. c/o headache Objective Last 24 Hour Vital Signs Date Time Temp Pulse Resp B/P Pulse Ox O2 Delivery O2 Flow Rate FiO2 12/01/16 08:54 78 149/84 12/01/16 08:46 149/84 12/01/16 08:00 97.9 78 20 149/84 97 Nasal Cannula 2.0 12/01/16 07:56 75 20 98 12/01/16 04:00 97.7 75 20 142/77 98 Nasal Cannula 2.0 12/01/16 00:00 97.5 76 18 121/61 100 Nasal Cannula 11/30/16 21:00 98/62 11/30/16 20:45 97.7 75 16 98/62 99 Nasal Cannula 3.0 11/30/16 18:34 98.0 76 16 107/68 99 Nasal Cannula 3.0 11/30/16 16:48 98.0 75 14 99/60 99 Nasal Cannula 3.0 11/30/16 16:40 75 14 92/60 99 Nasal Cannula 3.0 11/30/16 16:25 75 16 94/55 99 Nasal Cannula 3.0 11/30/16 16:10 75 20 96/61 99 Nasal Cannula 3.0 11/30/16 15:59 75 20 107/63 99 Nasal Cannula 3.0 11/30/16 15:54 75 20 102/56 99 Nasal Cannula 3.0 11/30/16 15:44 75 20 104/62 95 Nasal Cannula 3.0 11/30/16 15:40 75 20 98/62 95 Nasal Cannula 3.0 11/30/16 15:35 75 20 82/56 95 Nasal Cannula 3.0 11/30/16 15:30 79 20 113/69 95 Nasal Cannula 3.0 11/30/16 15:30 75 16 95 11/30/16 15:26 97.0 75 20 104/64 95 Nasal Cannula 3.0 11/30/16 12:34 97.5 11/30/16 12:00 98.8 77 20 154/94 97 Room Air General Appearance: WD/WN, no apparent distress, alert, other - OOB to chair Neck: supple, no JVD Rhythm: NSR Cardiovascular: normal rate, regular rhythm, systolic murmur - ii/vi rivas LUSB . no s3, s4 Respiratory/Chest: other - few crackles at bases Abdomen: non tender, soft, no mass Extremities: other - L hip dressing intact. mild L thigh edema Intake and Output 11/30/16 12/01/16 19:00 07:00 Intake Total 1150 ml 1615 ml Output Total 200 ml 650 ml Balance 950 ml 965 ml Intake Oral 340 ml IV Total 1150 ml 1275 ml Output Urine Total 150 ml 650 ml Estimated Blood Loss 50 ml SAVI GAN Dec 01, 2016 11:14
[2016-12-01] MEDS: Norco 7.5mg/325mg tab ORAL PRN (15:21)
[2016-12-01 16:00] VITALS: BP 137/87
--- NOTE | 2016-12-01 18:04 | General Progress Note ---
Assessment/Plan Problem List: (1) Femoral neck fracture ICD Codes: S72.009A - Fracture of unspecified part of neck of unspecified femur , initial encounter for closed fracture SNOMED: 7994015 (2) Paroxysmal atrial fibrillation ICD Codes: I48.0 - Paroxysmal atrial fibrillation SNOMED: 025176071 (3) Sick sinus syndrome ICD Codes: I49.5 - Sick sinus syndrome SNOMED: 30569846 (4) CHF (congestive heart failure) ICD Codes: I50.9 - Heart failure, unspecified SNOMED: 51422427 Assessment/Plan cont Lovenox PT Discussed with family Subjective Allergies: Coded Allergies: AMOXICILLIN (Verified Allergy, Unknown, 11/30/16) MORPHINE (Verified Allergy, Unknown, NAUSEA, 11/30/16) Subjective In NAD Objective Last 24 Hour Vital Signs Date Time Temp Pulse Resp B/P Pulse Ox O2 Delivery O2 Flow Rate FiO2 12/01/16 16:20 97.8 12/01/16 16:00 97.8 75 18 137/87 99 Nasal Cannula 2.0 12/01/16 08:54 78 149/84 12/01/16 08:46 149/84 12/01/16 08:00 97.9 78 20 149/84 97 Nasal Cannula 2.0 12/01/16 07:56 75 20 98 12/01/16 04:00 97.7 75 20 142/77 98 Nasal Cannula 2.0 12/01/16 00:00 97.5 76 18 121/61 100 Nasal Cannula 11/30/16 21:00 98/62 11/30/16 20:45 97.7 75 16 98/62 99 Nasal Cannula 3.0 11/30/16 18:34 98.0 76 16 107/68 99 Nasal Cannula 3.0 Intake and Output 11/30/16 12/01/16 19:00 07:00 Intake Total 1150 ml 1615 ml Output Total 200 ml 650 ml Balance 950 ml 965 ml Intake Oral 340 ml IV Total 1150 ml 1275 ml Output Urine Total 150 ml 650 ml Estimated Blood Loss 50 ml Height (Feet): 5 Height (Inches): 1.00 Weight (Pounds): 140 Cardiovascular: normal rate Respiratory/Chest: lungs clear Edema: no edema noted JASBIR Basilio Dec 01, 2016 18:04
[2016-12-01 20:00] VITALS: BP 138/77
[2016-12-01] MEDS: Atorvastatin 20mg tab ORAL SCH (20:34)
[2016-12-02] VITALS: BP 145/85
[2016-12-02] MEDS: oxyCODONE 5mg IR tab ORAL PRN ×3 (03:49→04:06)
[2016-12-02] MEDS: Norco 7.5mg/325mg tab ORAL PRN (03:57)
[2016-12-02 04:00] VITALS: BP 138/72
[2016-12-02 07:56] LABS: MEAN CORPUSCULAR HGB CONC 32.3 G/DL (32.0-36.0); MEAN CORPUSCULAR VOLUME 90 FL (80-99); MEAN PLATELET VOLUME 8.6 FL (6.5-10.1); PLATELET COUNT 90 K/UL (150-450); RED BLOOD COUNT 4.04 M/UL (4.20-5.40); WHITE BLOOD COUNT 13.5 K/UL (4.8-10.8)
[2016-12-02 08:15] LABS: ANION GAP 10 (5-15); CALCIUM 8.4 mg/dL (8.6-10.2); CARBON DIOXIDE 25 mEQ/L (20-30); CHLORIDE 96 mEQ/L (98-107); CREATININE 0.7 mg/dL (0.5-0.9); HEMOLYSIS 3; SODIUM 131 mEQ/L (135-145)
[2016-12-02 08:52] LABS: ANISOCYTOSIS 1+; BAND NEUTROPHILS % (MANUAL) 0 % (0-8); BASOPHILS % (MANUAL) 0 % (0-2); EOSINOPHILS % (MANUAL) 0 % (0-3); LYMPHOCYTES % (MANUAL) 8 % (20-45); NEUTROPHILS % (MANUAL) 82 % (45-75); PLATELET ESTIMATE DECREASED; PLATELET MORPHOLOGY NORMAL; TOTAL CELLS COUNTED 100
[2016-12-02 08:53] LABS: POLYCHROMASIA OCCASIONAL
[2016-12-02] MEDS: Enoxaparin 40mg Inj SUBQ SCH (09:00)
[2016-12-02] MEDS: Losartan 25mg tab ORAL SCH ×2 (09:00→20:56)
[2016-12-02] MEDS: Metoprolol XL 100mg tab ORAL SCH (09:00)
[2016-12-02] MEDS: Amiodarone 200mg tab ORAL SCH (09:00)
[2016-12-02] MEDS: Vitamin B-12 500mcg tab ORAL SCH (09:45)
[2016-12-02] MEDS: Docusate 100mg cap ORAL SCH ×2 (09:45→20:57)
[2016-12-02] MEDS: Aspirin Baby 81mg ORAL SCH (09:45)
[2016-12-02] MEDS ORDERED: METOPROLOL SUC100 MG ORAL (10:35)
--- NOTE | 2016-12-02 10:43 | Consultation ---
Consult Note Assessment/Plan DC dictated # [id number] JASBIR CRUZ Dec 02, 2016 10:43
--- NOTE | 2016-12-02 15:20 | Cardiology Progress Note ---
Assessment/Plan Problem List: (1) Injury of lower extremity (2) Femoral neck fracture (3) Paroxysmal atrial fibrillation (4) Sick sinus syndrome (5) Hypertension Status: stable, progressing Status Narrative Pt is s/p nonsyncopal fall, and sustained L femoral neck fracture. She is s/p L hip ORIF on 11/30 Labile BPs noted - dec to 90 systolic this am Assessment/Plan Stop iv fluids , as pt able to take po Continue amiodarone for PAF sc heparin bid for DVT prophylaxis, but would hold full anticoagulation for now. Decrease losartan to 25 mg/d and continue metoprolol XL. Constipation may be due to narcotics. Laxatives prn dc plan per Dr. Sullivan. Subjective ROS Limited/Unobtainable: No Subjective Mrs. Lujan c/o constipation. No n/v Poor po intake. Objective Last 24 Hour Vital Signs Date Time Temp Pulse Resp B/P Pulse Ox O2 Delivery O2 Flow Rate FiO2 12/02/16 09:00 75 90/66 12/02/16 09:00 9012/02/16 04:49 97.0 12/02/16 04:00 98.2 70 20 138/72 97 Room Air 12/02/16 00:00 97.0 77 19 145/85 95 Room Air 12/01/16 20:00 98.4 79 46 138/77 98 Nasal Cannula 2.0 12/01/16 16:00 97.8 75 18 137/87 99 Nasal Cannula 2.0 General Appearance: WD/WN, no apparent distress, alert EENT: PERRL/EOMI Neck: no JVD Rhythm: NSR Cardiovascular: normal peripheral pulses, normal rate, regular rhythm, no gallop/murmur Respiratory/Chest: lungs clear Abdomen: non tender, soft Extremities: other - L hip dressing intact/ mild to mod L thigh edema and mild ecchymosis Intake and Output 12/01/16 12/02/16 19:00 07:00 Intake Total 600 ml 400 ml Output Total 500 ml Balance 100 ml 400 ml Intake Oral 600 ml 400 ml Output Urine Total 500 ml # Voids 3 Laboratory Tests Test 12/02/16 07:40 White Blood Count 13.5 K/UL (4.8-10.8) H Red Blood Count 4.04 M/UL (4.20-5.40) L Hemoglobin 11.7 G/DL (12.0-16.0) L Hematocrit 36.2 % (37.0-47.0) L Mean Corpuscular Volume 90 FL (80-99) Mean Corpuscular Hemoglobin 29.0 PG (27.0-31.0) Mean Corpuscular Hemoglobin Concent 32.3 G/DL (32.0-36.0) Red Cell Distribution Width 14.0 % (11.6-14.8) Platelet Count 90 K/UL (150-450) L Mean Platelet Volume 8.6 FL (6.5-10.1) Neutrophils (%) (Auto) % (45.0-75.0) Lymphocytes (%) (Auto) % (20.0-45.0) Monocytes (%) (Auto) % (1.0-10.0) Eosinophils (%) (Auto) % (0.0-3.0) Basophils (%) (Auto) % (0.0-2.0) Differential Total Cells Counted 100 Neutrophils % (Manual) 82 % (45-75) H Lymphocytes % (Manual) 8 % (20-45) L Monocytes % (Manual) 10 % (1-10) Eosinophils % (Manual) 0 % (0-3) Basophils % (Manual) 0 % (0-2) Band Neutrophils 0 % (0-8) Platelet Estimate Decreased L Platelet Morphology Normal Polychromasia Occasional Anisocytosis 1+ Sodium Level 131 mEQ/L (135-145) L Potassium Level 5.0 mEQ/L (3.4-4.9) H Chloride Level 96 mEQ/L (98-107) L Carbon Dioxide Level 25 mEQ/L (20-30) Anion Gap 10 (5-15) Blood Urea Nitrogen 18 mg/dL (7-23) Creatinine 0.7 mg/dL (0.5-0.9) Estimat Glomerular Filtration Rate mL/min (>60) Glucose Level 146 mg/dL (74-106) H Calcium Level 8.4 mg/dL (8.6-10.2) L Pro-B-Type Natriuretic Peptide 2345 pg/mL (0-450) H SAVI GAN Dec 02, 2016 15:20
[2016-12-02 16:12] VITALS: BP 141/76
[2016-12-02] MEDS: Miralax 17gm pkt ORAL PRN (19:25)
[2016-12-02 20:25] VITALS: BP 156/81
[2016-12-02] MEDS: Atorvastatin 20mg tab ORAL SCH (20:56)
[2016-12-03 05:00] VITALS: BP 144/86
[2016-12-03] MEDS: Norco 7.5mg/325mg tab ORAL PRN ×2 (06:57→17:39)
[2016-12-03 08:00] VITALS: BP 122/71
[2016-12-03] MEDS: Enoxaparin 40mg Inj SUBQ SCH (09:00)
[2016-12-03] MEDS: Docusate 100mg cap ORAL SCH ×2 (09:02→20:21)
[2016-12-03] MEDS: Amiodarone 200mg tab ORAL SCH (09:02)
[2016-12-03] MEDS: Aspirin Baby 81mg ORAL SCH (09:02)
[2016-12-03] MEDS: Metoprolol XL 100mg tab ORAL SCH (09:02)
[2016-12-03] MEDS: Vitamin B-12 500mcg tab ORAL SCH (09:02)
--- NOTE | 2016-12-03 09:47 | Discharge Summary ---
DATE OF ADMISSION: 11/29/2016 DATE OF DISCHARGE: 12/04/2016 CHIEF COMPLAINT: Left hip pain. HISTORY OF PRESENT ILLNESS: This is a 81-year-old female, who sustained a mechanical fall at home and she mentioned that she was brought into the hospital with the left hip pain. She was found to have a displaced femoral neck fracture on the left side. HOSPITAL COURSE: The patient was seen by Dr. Sebastian Velazquez for orthopaedic consultation. She underwent left hip repair. She did well postoperatively. Physical therapy was ordered and she was finally discharged home in stable condition. Home cole was ordered. Abisai Sullivan M.D. DR: JAILENE JOB#: [id number] CC: VASHTI
[2016-12-03 12:00] VITALS: BP 119/70
[2016-12-03] MEDS: Miralax 17gm pkt ORAL PRN (12:15)
[2016-12-03 16:04] VITALS: BP 111/66
--- NOTE | 2016-12-03 18:50 | General Progress Note ---
Assessment/Plan Problem List: (1) Femoral neck fracture ICD Codes: S72.009A - Fracture of unspecified part of neck of unspecified femur , initial encounter for closed fracture SNOMED: 9202248 (2) Paroxysmal atrial fibrillation ICD Codes: I48.0 - Paroxysmal atrial fibrillation SNOMED: 319018181 (3) Sick sinus syndrome ICD Codes: I49.5 - Sick sinus syndrome SNOMED: 20642808 (4) CHF (congestive heart failure) ICD Codes: I50.9 - Heart failure, unspecified SNOMED: 67164734 (5) Thrombocytopenia ICD Codes: D69.6 - Thrombocytopenia, unspecified SNOMED: 005972582 Assessment/Plan Dc Lovenox PT Discussed with family follow CBC Subjective Allergies: Coded Allergies: AMOXICILLIN (Verified Allergy, Unknown, 11/30/16) MORPHINE (Verified Allergy, Unknown, NAUSEA, 11/30/16) Subjective C/O constipation and neck pain Objective Last 24 Hour Vital Signs Date Time Temp Pulse Resp B/P Pulse Ox O2 Delivery O2 Flow Rate FiO2 12/03/16 16:04 97.9 75 19 111/66 99 Room Air 12/03/16 12:00 97.0 77 18 119/70 100 Room Air 12/03/16 09:02 77 121/79 12/03/16 08:00 98.1 77 18 122/71 95 Room Air 12/03/16 05:00 97.0 75 18 144/86 95 Room Air 12/02/16 20:56 143/85 12/02/16 20:25 97.9 75 18 156/81 95 Room Air Intake and Output 12/02/16 12/03/16 19:00 07:00 Intake Total 550 ml 480 ml Balance 550 ml 480 ml Intake Oral 550 ml 480 ml # Voids 2 2 Height (Feet): 5 Height (Inches): 1.00 Weight (Pounds): 140 Cardiovascular: normal rate Respiratory/Chest: lungs clear JASBIR CRUZ Dec 03, 2016 18:50
[2016-12-03] MEDS ORDERED: Fleet's Enema 133ml RECTAL ONE ×2 (19:00→19:30)
[2016-12-03] MEDS: Atorvastatin 20mg tab ORAL SCH (20:21)
[2016-12-03 21:42] VITALS: BP 103/69
[2016-12-03] MEDS ORDERED: Losartan 25mg tab ORAL SCH (22:00)
[2016-12-04] VITALS: BP 126/77
[2016-12-04 06:34] VITALS: BP 114/79
[2016-12-04 07:33] VITALS: BP 132/83
[2016-12-04 08:10] LABS: BASOPHILS % (AUTO) 2.3 % (0.0-2.0); EOSINOPHILS % (AUTO) 4.6 % (0.0-3.0); LYMPHOCYTES % (AUTO) 16.6 % (20.0-45.0); MEAN CORPUSCULAR HEMOGLOBIN 28.6 PG (27.0-31.0); MEAN CORPUSCULAR VOLUME 92 FL (80-99); MEAN PLATELET VOLUME 7.1 FL (6.5-10.1); MONOCYTES % (AUTO) 10.2 % (1.0-10.0); NEUTROPHILS % (AUTO) 66.3 % (45.0-75.0); PLATELET COUNT 127 K/UL (150-450); RED BLOOD COUNT 4.04 M/UL (4.20-5.40); RED CELL DISTRIBUTION WIDTH 13.5 % (11.6-14.8); WHITE BLOOD COUNT 9.3 K/UL (4.8-10.8)
[2016-12-04 08:36] LABS: ALANINE AMINOTRANSFERASE 9 U/L (3-33); ALBUMIN/GLOBULIN RATIO 0.9 (1.0-2.7); ANION GAP 11 (5-15); ASPARTATE AMINO TRANSFERASE 17 U/L (5-40); CALCIUM 8.4 mg/dL (8.6-10.2); CARBON DIOXIDE 29 mEQ/L (20-30); CHLORIDE 97 mEQ/L (98-107); CREATININE 0.8 mg/dL (0.5-0.9); HEMOLYSIS 10; POTASSIUM 4.7 mEQ/L (3.4-4.9); SODIUM 137 mEQ/L (135-145); TOTAL PROTEIN 5.7 g/dL (6.6-8.7)
[2016-12-04] MEDS: Aspirin Baby 81mg ORAL SCH (09:00)
[2016-12-04] MEDS: Metoprolol XL 100mg tab ORAL SCH (09:00)
[2016-12-04] MEDS: Docusate 100mg cap ORAL SCH (09:04)
[2016-12-04] MEDS: Vitamin B-12 500mcg tab ORAL SCH (09:04)
[2016-12-04] MEDS: Amiodarone 200mg tab ORAL SCH (09:06)
[2016-12-04 11:47] VITALS: BP 107/68
--- NOTE | 2016-12-04 12:20 | General Progress Note ---
Assessment/Plan Problem List: (1) Femoral neck fracture ICD Codes: S72.009A - Fracture of unspecified part of neck of unspecified femur , initial encounter for closed fracture SNOMED: 2793214 (2) Paroxysmal atrial fibrillation ICD Codes: I48.0 - Paroxysmal atrial fibrillation SNOMED: 776177764 (3) Sick sinus syndrome ICD Codes: I49.5 - Sick sinus syndrome SNOMED: 47591955 (4) CHF (congestive heart failure) ICD Codes: I50.9 - Heart failure, unspecified SNOMED: 59770217 (5) Thrombocytopenia ICD Codes: D69.6 - Thrombocytopenia, unspecified SNOMED: 572324829 Assessment/Plan DC today Subjective Allergies: Coded Allergies: AMOXICILLIN (Verified Allergy, Unknown, 11/30/16) MORPHINE (Verified Allergy, Unknown, NAUSEA, 11/30/16) Subjective ok Objective Last 24 Hour Vital Signs Date Time Temp Pulse Resp B/P Pulse Ox O2 Delivery O2 Flow Rate FiO2 12/04/16 11:47 97.3 75 20 107/68 98 Room Air 12/04/16 07:33 97.7 75 20 132/83 97 Room Air 12/04/16 06:34 97.2 77 18 114/79 100 Room Air 12/04/16 00:00 97.2 75 18 126/77 98 Room Air 12/03/16 21:42 97.0 75 18 103/69 96 Room Air 12/03/16 16:04 97.9 75 19 111/66 99 Room Air Intake and Output 12/03/16 12/04/16 18:59 06:59 Intake Total 200 ml 240 ml Balance 200 ml 240 ml Intake Oral 200 ml 240 ml # Voids 1 3 # Bowel Movements 1 Laboratory Tests 12/04/16 07:25: White Blood Count 9.3, Red Blood Count 4.04L, Hemoglobin 11.6L, Hematocrit 37.3 , Mean Corpuscular Volume 92, Mean Corpuscular Hemoglobin 28.6, Mean Corpuscular Hemoglobin Concent 31.0L, Red Cell Distribution Width 13.5, Platelet Count 127L, Mean Platelet Volume 7.1, Neutrophils (%) (Auto) 66.3, Lymphocytes (%) (Auto) 16.6L, Monocytes (%) (Auto) 10.2H, Eosinophils (%) (Auto ) 4.6H, Basophils (%) (Auto) 2.3H, Sodium Level 137, Potassium Level 4.7, Chloride Level 97L, Carbon Dioxide Level 29, Anion Gap 11, Blood Urea Nitrogen 20, Creatinine 0.8, Estimat Glomerular Filtration Rate , Glucose Level 103, Calcium Level 8.4L, Total Bilirubin 0.7, Aspartate Amino Transf (AST/SGOT) 17, Alanine Aminotransferase (ALT/SGPT) 9, Alkaline Phosphatase 54, Total Protein 5.7L, Albumin 2.8L, Globulin 2.9, Albumin/Globulin Ratio 0.9L Height (Feet): 5 Height (Inches): 1.00 Weight (Pounds): 140 JASBIR CRUZ Dec 04, 2016 12:20
[2016-12-04] MEDS ORDERED: NS 550ML IV ONE (14:21)
--- NOTE | 2016-12-06 08:16 | Discharge Summary ---
Discharge Summary Hospital Course Date of Admission Nov 29, 2016 at 16:27 Date of Discharge Dec 04, 2016 at 14:22 Admitting Diagnosis Left hip fx HPI Clarisse Lujan is a 81 year old female who was admitted on Nov 29, 2016 at 16:27 for Left Hip Fracture Hospital Course Addendum to DC summary: patient's family wanted patient to go to [facility]. Patient was referred but was not accepted. Family refused SNF placement and was discharged to home with . DMEs were provided prior to discharge. Discharge Discharge Disposition Patient was discharged to Home with Home Health() Discharge Diagnoses: Vicky Manuel NP Dec 06, 2016 08:16
== END 2016-12-04 14:22 | disposition home health service (06) | DRG 470 ==
LOC: ENRESERVTM → ENRESERVDT → EDBD 14:55 → EMR 15:45 → 4W 16:27 → EDBEDREQ 17:37 → 3E 11-30 16:05
PROC: 0SRS0JZ Replacement of Left Hip Joint, Femoral Surface with Synthetic Substitute, Open Approach (ICD-10-PCS; principal; 2016-11-30 14:00)
DX: S72.002A Fracture of unspecified part of neck of left femur, initial encounter for closed fracture (principal); I50.9 Heart failure, unspecified; I11.0 Hypertensive heart disease with heart failure; D69.6 Thrombocytopenia, unspecified; I48.0 Paroxysmal atrial fibrillation; K21.9 Gastro-esophageal reflux disease without esophagitis; D64.9 Anemia, unspecified; M19.90 Unspecified osteoarthritis, unspecified site; Z79.82 Long term (current) use of aspirin; Z95.0 Presence of cardiac pacemaker; W01.0XXA Fall on same level from slipping, tripping and stumbling without subsequent striking against object, initial encounter; Y92.010 Kitchen of single-family (private) house as the place of occurrence of the external cause
CPT/HCPCS: 36415; 71010; 72192; 80048; 80053; 82550; 82553; 83880; 84484; 85007; 85025; 85610; 85730; 93005; 94003; 94150; J2250; J2405; S0077

== ENCOUNTER 2018-01-16 22:19 | Emergency (ER) | payer MEDICARE, OTHER ==
[~2018-01-16] VITALS: Ht 154.9 cm; Wt 54.9 kg
[~2018-01-16 22:19] MED LIST changes: +AMIODARONE HCL400 M1 ORAL; +ASPIR 8181 MG ORAL; +ATORVASTATIN CA20 MG ORAL; +DEXILANT60 MG ORAL; +METOPROLOL SUC100 MG ORAL; +METOPROLOL SUCC25 MG ORAL; +VASCEPA1 GM PO; +VITAMIN B-12500 MCG ORAL
[2018-01-16] MEDS ORDERED: POTASSIUM CHLO20 ME3 PO (22:40)
[2018-01-16] MEDS ORDERED: PRAVASTATIN SOD20 M1 ORAL (22:40)
[2018-01-16] MEDS ORDERED: MIRTAZAPINE7.5 MG ORAL (22:40)
[2018-01-16] MEDS ORDERED: COMBIGAN EYE DRO5 ML OP (22:40)
[2018-01-16] MEDS ORDERED: DOK100 M1 PO (22:40)
[2018-01-16] MEDS ORDERED: WARFARIN SODIUM1 MG ORAL (22:40)
[2018-01-16] MEDS ORDERED: CULTURELLE1 EACH ORAL (22:40)
[2018-01-16] MEDS ORDERED: AMIODARONE HCL400 M1 ORAL (22:40)
[2018-01-16] MEDS ORDERED: PREDNISONE10 MG ORAL (22:40)
[2018-01-16] MEDS ORDERED: TYLENOL EXTRA500 MG ORAL (22:40)
[2018-01-16] MEDS ORDERED: LASIX20 M1 ORAL (22:40)
[2018-01-16] MEDS ORDERED: Tetanus/Diptheria/Pertussis Vaccine 0.5ml Syr IM ONE (23:00)
[2018-01-17 00:27] VITALS: BP 169/80
[2018-01-17 00:49] VITALS: BP 169/80
--- NOTE | 2018-01-17 01:47 | Emergency Room Report ---
History of Present Illness General Chief Complaint: Multiple Trauma/Fall Source: Patient Present Illness HPI 82-year-old female presents ED for evaluation. Patient states she had a mechanical slip and fall earlier today around noon. Fell and hit her head. Also complaining of pain to her bilateral hands and left knee. Abrasions noted. Tetanus unknown. Pain is a 5/10, throbbing, nonradiating. Patient states she takes Coumadin. Denies chest pain or shortness of breath. Denies headaches blurry vision nausea or vomiting. No other aggravating relieving factors. Denies any other associated symptoms Allergies: Coded Allergies: AMOXICILLIN (Verified Allergy, Unknown, 11/30/16) MORPHINE (Verified Allergy, Unknown, NAUSEA, 11/30/16) Patient History Past Medical History: HTN Past Surgical History: pacemaker Pertinent Family History: none Social History: Denies: smoking, alcohol use, drug use Last Menstrual Period: NA Now: No Immunizations: UTD Reviewed Nursing Documentation: PMH: Agreed, PSxH: Agreed Nursing Documentation-PMH Hx Cardiac Problems: Yes - PT HAS PACEMAKER LEFT CHEST Hx Hypertension: Yes Hx Pacemaker: Yes Hx Cancer: No Hx Gastrointestinal Problems: No Hx Neurological Problems: No Review of Systems All Other Systems: negative except mentioned in HPI Physical Exam Vital Signs Date Time Temp Pulse Resp B/P (MAP) Pulse Ox O2 Delivery O2 Flow Rate FiO2 01/16/18 22:29 97.6 75 20 159/90 99 Room Air 97.5 Sp02 EP Interpretation: reviewed, normal General Appearance: no apparent distress, alert, GCS 15, non-toxic, cachetic, thin Head: normocephalic, atraumatic Eyes: bilateral eye normal inspection, bilateral eye PERRL ENT: hearing grossly normal, normal pharynx, no angioedema, normal voice Neck: full range of motion, supple/symm/no masses Respiratory: chest non-tender, lungs clear, normal breath sounds, speaking full sentences Cardiovascular #1: regular rate, rhythm, no edema Cardiovascular #2: 2+ carotid (R), 2+ carotid (L), 2+ radial (R), 2+ radial (L) , 2+ dorsalis pedis (R), 2+ dorsalis pedis (L) Gastrointestinal: normal bowel sounds, non tender, soft, non-distended, no guarding, no rebound Rectal: deferred Genitourinary: normal inspection, no CVA tenderness Musculoskeletal: back normal, gait/station normal, normal range of motion, tender - bilateral hands Neurologic: alert, oriented x3, responsive, motor strength/tone normal, sensory intact, speech normal Psychiatric: judgement/insight normal, memory normal, mood/affect normal, no suicidal/homicidal ideation Reflexes: 3+ bicep (R), 3+ bicep (L), 3+ tricep (R), 3+ tricep (L), 3+ knee (R) , 3+ knee (L) Skin: abrasions - above L eyelid. abrasions to L knee Lymphatic: no adenopathy Procedures Splinting Splinting : Consent: Verbal Pre-Made Type: velcro Splint: wrist Pre-Proc Neuro Vasc Exam: normal Post-Proc Neuro Vasc Exam: normal Patient Tolerated: Well Complications: None Medical Decision Making Diagnostic Impression: Primary Impression: Multiple injuries due to trauma Additional Impression: Head injury Qualified Codes: S09.90XA - Unspecified injury of head, initial encounter ER Course Hospital Course 82-year-old female presents to ED status post head injury status post fall. bilateral wrist and L knee pain. on coumadin Differential diagnoses include: AL/unstable angina, arrythmia, dehydration, CVA/ TIA Clinical course Patient placed on stretcher. on front desk monitor. After initial history and physical I ordered labs, EKG, xrays, IVFs, CT Brain EKG- atrial paced rhythm CT brain-unremarkable Xrays of bilateral hands, knee unremarkable for acute fx/dislocation Placed in bilateral wrist splints. Tetanus given. Abrasions cleaned dressings applied Given age and history of Coumadin, I believe patient should be admitted for risk of delayed head bleed Patient declines IV access and lab draw. Stating she wants to be discharged. family at bedside Patient states she wishes to go home. Understands the risks of leaving. Patient has competency to make her own decisions. Signed AMA form. I. I feel this is a highly complex case requiring extensive working including EKG/Rhythm strip, Xray/CT/US, Blood/urine lab work, repeat exams while in ED, and administration of strong opiates/narcotics for pain control, admission to hospital or close patient follow up. Diagnosis - multiple injuries due to trauma, head injury patient left AMA EKG Diagnostic Results Rate: normal Rhythm: other - paced ST Segments: no acute changes ASA given to the pt in ED: No Rhythm Strip Diag. Results EP Interpretation: yes Rhythm: no PVC's, no ectopy Other X-Ray Diagnostic Results Other X-Ray Diagnostic Results #1: X-Ray ordered: R hand # of Views/Limited Vs Complete: 3 View Indication: Pain EP Interpretation: Yes Interpretation: no dislocation, no soft tissue swelling, no fractures Impression: No acute disease Electronically Signed by: Electronically signed by Gabriel Friend MD Other X-Ray Diagnostic Results #2: X-Ray ordered: L hand # of Views/Limited Vs Complete: 3 View Indication: Pain EP Interpretation: Yes Interpretation: no dislocation, no soft tissue swelling, no fractures Impression: No acute disease Electronically Signed by: Electronically signed by Gabriel Friend MD Other X-Ray Diagnostic Results #3: X-Ray ordered: L knee # of Views/Limited Vs Complete: 3 View Indication: Pain EP Interpretation: Yes Interpretation: no dislocation, no soft tissue swelling, no fractures Impression: No acute disease Electronically Signed by: Electronically signed by Gabriel Friend MD CT/MRI/US Diagnostic Results CT/MRI/US Diagnostic Results : Imaging Test Ordered: CT head Impression no acute process Last Vital Signs Date Time Temp Pulse Resp B/P (MAP) Pulse Ox O2 Delivery O2 Flow Rate FiO2 01/17/18 00:49 75 24 169/80 100 Room Air 01/17/18 00:27 97.5 97.5 Status: unchanged Disposition: AGAINST MEDICAL ADVICE Condition: Stable Referrals: NON PHYSICIAN (PCP) GABRIEL FRIEND M.D. Jan 17, 2018 01:47
--- NOTE | 2018-01-17 10:19 | Diagnostic Imaging Report ---
Indications: Knee pain Technique: Three views of the left knee Comparison: None Findings: No acute fractures. No dislocations. Joint spaces are preserved. No radiopaque foreign body. Normal mineralization. Impression: No acute process This agrees with the preliminary interpretation provided by the emergency room physician
--- NOTE | 2018-01-17 10:23 | Diagnostic Imaging Report ---
Indication: Pain in bilateral hands status post fall Technique: 3 views right hand Comparison: none Findings: There are minimal degenerative changes of the fourth and fifth distal interphalangeal joints and the first interphalangeal joint. No acute fractures. No dislocations. Impression: Mild degenerative changes as described No acute bony trauma
--- NOTE | 2018-01-17 10:26 | Diagnostic Imaging Report ---
Indications: Frontal head pain, injury, status post fall Technique: Spiral acquisitions obtained through the brain. Angled axial and coronal 5 x 5 mm slices were reconstructed. Total dose length product 1245.89 mGycm. CTDI vol(s) 70.38 mGy. Dose reduction achieved using automated exposure control Comparison: None. Findings: No acute intracranial hemorrhage or edema. No mass effect nor midline shift. There is age-related enlargement of the ventricles and extra axial CSF spaces. Intact calvarium. Visualized orbits and sinuses are unremarkable. Impression: Chronic and age-related changes. Negative for acute intracranial bleed or mass effect This agrees with the preliminary interpretation provided overnight by [facility]. The CT scanner at [facility] is accredited by the [employer] and the scans are performed using protocols designed to limit radiation exposure to as low as reasonably achievable to attain images of sufficient resolution adequate for diagnostic evaluation.
--- NOTE | 2018-01-17 11:50 | Diagnostic Imaging Report ---
Indication: Reason For Exam: PAIN Technique: 3 views left hand Comparison: none Findings: No acute fractures. No dislocations. There is minimal degenerative changes of the first interphalangeal joint. Impression: No acute process Minimal degenerative changes This agrees with the preliminary interpretation provided by the emergency room physician
--- NOTE | 2018-01-17 14:14 | Cardiology Report ---
APPROVED REPORT EKG Measurement Heart [id number] 184P-[id number] Atrial Pacemaker Prolonged QT Abnormal ECG
== END 2018-01-17 00:49 | disposition left against medical advice (07) ==
LOC: EMR 23:30
DX: S09.90XA Unspecified injury of head, initial encounter (principal); M25.532 Pain in left wrist; M25.531 Pain in right wrist; M25.562 Pain in left knee; W01.10XA Fall on same level from slipping, tripping and stumbling with subsequent striking against unspecified object, initial encounter; Y93.9 Activity, unspecified; Y92.9 Unspecified place or not applicable; Z79.01 Long term (current) use of anticoagulants; I10 Essential (primary) hypertension; Z95.0 Presence of cardiac pacemaker; Z88.6 Allergy status to analgesic agent; Z23 Encounter for immunization
CPT/HCPCS: 70450; 90471; 90715; 93005; 99284